=== PATIENT | male | born 1975 | race Two or more races ===

== ENCOUNTER 2017-12-20 23:10 | Emergency (ER) | payer MEDICAID ==
[~2017-12-20] VITALS: Ht 167.6 cm; Wt 81.8 kg
[2017-12-21 03:15] LABS: BASOPHILS % (AUTO) 0.4 % (0.0-2.0); EOSINOPHILS % (AUTO) 0.1 % (1.0-6.0); HEMATOCRIT 43.2 % (41-53); HEMOGLOBIN 15.2 g/dL (13.5-17.5); LYMPHOCYTES # (AUTO) 1.5 K/uL (1.0-4.8); LYMPHOCYTES % (AUTO) 15.1 % (22.0-44.0); MEAN CORPUSCULAR HEMOGLOBIN 33.1 pg (26.0-34.0); MEAN CORPUSCULAR HGB CONC 35.2 G/dL (31.0-37.0); MEAN CORPUSCULAR VOLUME 94 fL (80-100); MONOCYTES # (AUTO) 0.6 K/uL (0.1-1.0); MONOCYTES % (AUTO) 5.8 % (2.0-9.0); NEUTROPHILS # (AUTO) 7.7 K/uL (1.8-7.7); NEUTROPHILS % (AUTO) 78.6 % (40.0-70.0); PLATELET COUNT (AUTO) 152 K/uL (150-450); RED CELL DISTRIBUTION WIDTH 12.6 % (11.5-14.5)
[2017-12-21 03:24] LABS: ANION GAP 6 mmol/L (8-16); CALCIUM, TOTAL 9.2 mg/dL (8.8-10.5); CARBON DIOXIDE 27 mmol/L (22-29); CHLORIDE 106 mmol/L (98-107); CREATININE 0.89 mg/dL (0.60-1.30); GLOMERULAR FILTR. RATE CALC > 60 mL/min (>60); GLUCOSE,RANDOM 119 mg/dL (70-110); POTASSIUM 4.5 mmol/L (3.5-5.1); SODIUM SERUM 139 mmol/L (136-145); UREA NITROGEN, BLOOD 11 mg/dL (7-18)
[2017-12-21 03:31] LABS: ALANINE AMINOTRANSFERASE 58 U/L (12-78); ALBUMIN 4.4 g/dL (3.4-5.0); ALKALINE PHOSPHATASE 79 U/L (46-116); ASPARTATE AMINOTRANSFERASE 23 U/L (15-37); BILIRUBIN,TOTAL 0.7 mg/dL (0.1-1.0); TOTAL PROTEIN, SERUM 8.2 g/dL (6.4-8.2)
[2017-12-21] MEDS ORDERED: KETOROLAC TROMETHAMINE 60 MG/2 ML VIAL IM ONE (04:15)
[2017-12-21 06:50] VITALS: BP 138/74
== END 2017-12-21 07:07 | disposition home or self-care (01) ==
LOC: EMS 23:13
DX: F41.9 Anxiety disorder, unspecified (principal); R07.2 Precordial pain; R55 Syncope and collapse; R42 Dizziness and giddiness
CPT/HCPCS: 36415; 71045; 80053; 84484; 85025; 85379; 93005; 96372; 99285; G0480; J1885